=== PATIENT | male | born 1970 | race Caucasian/White ===

== ENCOUNTER 2024-11-24 16:42 | Emergency (ER) | payer SELFPAY ==
[~2024-11-24] VITALS: Ht 175.3 cm; Wt 90.7 kg
[2024-11-24 16:42] VITALS: BP 132/86; PULSE 84; RESP 20; TEMP 98; O2SAT 93
[2024-11-24] MEDS ORDERED: DUONEB 0.5-3(2.5) MG/3 ML IH ONE (17:16)
[2024-11-24 17:20] VITALS: PULSE 84; RESP 20; O2SAT 96
[2024-11-24] MEDS ORDERED: ZITHROMAX PO ONE (17:20)
[2024-11-24] MEDS ORDERED: PREDNISONE ONE (17:20)
[2024-11-24] MEDS ORDERED: TESSALON PO ONE (17:20)
[2024-11-24] MEDS: PREDNISONE PO STA (17:26)
[2024-11-24] MEDS: DUONEB 0.5-3(2.5) MG/3 ML IH STA (17:26)
[2024-11-24] MEDS: TESSALON PO STA (17:26)
[2024-11-24] MEDS: ZITHROMAX PO STA (17:26)
[2024-11-24] MEDS ORDERED: AZIT500T2 PO (17:30)
[2024-11-24] MEDS ORDERED: BENZ-14 PO (17:30)
[2024-11-24] MEDS ORDERED: PRED20TA PO (17:30)
[2024-11-24 17:52] VITALS: PULSE 84; RESP 20; O2SAT 96
[2024-11-24 18:00] VITALS: BP 144/91; PULSE 72; RESP 20; TEMP 98; O2SAT 93
== END 2024-11-24 18:00 | disposition home or self-care (01) ==
LOC: ER 16:42
DX: J06.9 Acute upper respiratory infection, unspecified (principal); J20.9 Acute bronchitis, unspecified
CPT/HCPCS: 99284; 94640; J7512; Q0144